=== PATIENT | female | born 1950 | race Caucasian/White ===

== ENCOUNTER 2016-09-13 10:09 | Outpatient (CLI) | payer MEDICARE, OTHER | END 2016-09-13 10:10 | disposition home or self-care (01) | DX: E78.70 Disorder of bile acid and cholesterol metabolism, unspecified (principal) ==

== ENCOUNTER 2016-10-31 12:29 | Emergency (ER) | payer MEDICARE, OTHER | END 2016-10-31 15:23 | disposition home or self-care (01) | DX: R07.9 Chest pain, unspecified (principal) ==

== ENCOUNTER 2016-12-14 22:49 | Outpatient (CLI) | payer MEDICARE, OTHER | END 2016-12-14 22:50 | disposition critical access hospital (66) | DX: R41.82 Altered mental status, unspecified (principal) | CPT/HCPCS: A0425; A0429 ==

== ENCOUNTER 2016-12-14 23:11 | Emergency (ER) | payer MEDICARE, OTHER ==
[2016-12-15] MEDS ORDERED: SODIUM CHLORIDE 0.9% 500 ML IV STA (01:32)
[2016-12-15] MEDS ORDERED: SODIUM CHLORIDE 0.9% 1,000 ML IV STA (01:33)
== END 2016-12-15 04:00 | disposition home or self-care (01) ==
DX: F10.129 Alcohol abuse with intoxication, unspecified (principal); W01.0XXA Fall on same level from slipping, tripping and stumbling without subsequent striking against object, initial encounter; Y92.018 Other place in single-family (private) house as the place of occurrence of the external cause
CPT/HCPCS: 36415; 70450; 80053; 80306; 81003; 83690; 85025; 99284; G0480

== ENCOUNTER 2017-01-08 10:02 | Outpatient (CLI) | payer MEDICARE, OTHER | END 2017-01-08 10:03 | disposition home or self-care (01) | DX: D47.2 Monoclonal gammopathy (principal) ==

== ENCOUNTER 2017-01-12 10:41 | Outpatient (CLI) | payer MEDICARE, OTHER | END 2017-01-12 10:42 | disposition home or self-care (01) | DX: Z12.31 Encounter for screening mammogram for malignant neoplasm of breast (principal) ==

== ENCOUNTER 2017-07-17 09:52 | Outpatient (CLI) | payer MEDICARE, OTHER ==
[2017-07-17 18:03] LABS: BASOPHILS % (AUTO) 0.4 %; EOSINOPHILS # (AUTO) 0.1 10^3/uL (0.0-0.7); EOSINOPHILS % (AUTO) 1.1 %; HCT - HEMATOCRIT 43.7 % (37.0-47.0); LYMPHOCYTES # (AUTO) 1.3 10^3/uL (1.5-3.5); LYMPHOCYTES % (AUTO) 26.4 %; MEAN CORPUSCULAR HEMOGLOBIN 29.9 pg (27.0-31.0); MEAN CORPUSCULAR HGB CONC 32.1 g/dL (32.0-36.0); MEAN CORPUSCULAR VOLUME 93.2 fL (81.0-99.0); MEAN PLATELET VOLUME 7.6 fL (7.9-10.8); MONOCYTES # (AUTO) 0.4 10^3/uL (0.0-1.0); MONOCYTES % (AUTO) 8.8 %; NEUTROPHILS # (AUTO) 3.1 10^3/uL (1.5-6.6); NEUTROPHILS % (AUTO) 63.3 %; RED BLOOD COUNT 4.69 10^6/uL (4.20-5.40); RED CELL DISTRIBUTION WIDTH 14.2 % (12.0-15.0); UNCORRECTED WHITE BLOOD COUNT 4.8 x10^3/uL; WHITE BLOOD COUNT 4.8 x10^3/uL (4.8-10.8)
[2017-07-17 18:51] LABS: ALBUMIN/GLOBULIN RATIO 1.2 (1.0-2.2); BILIRUBIN,TOTAL 0.6 mg/dL (0.2-1.0); BUN - BLOOD UREA NITROGEN 18 mg/dL (6-20); CARBON DIOXIDE - CO2 26 mmol/L (21-32); CHLORIDE 103 mmol/L (101-111); CHOL/HDL RATIO 2.5 (<4.4); CHOLESTEROL 178 mg/dL; CREATININE 0.8 mg/dL (0.4-1.0); GFR - MDRD 71 (>89); GLUCOSE 86 mg/dL (70-100); HDL CHOLESTEROL 71 mg/dL; LDL/HDL RATIO 1.4 (<4.4); POTASSIUM 3.9 mmol/L (3.5-5.0); SODIUM 136 mmol/L (135-145); TOTAL PROTEIN 7.8 g/dL (6.7-8.2); TRIGLYCERIDES 47 mg/dL; VLDL CHOLESTEROL 9 mg/dL
[2017-07-19 16:22] LABS: TEST RESULT REPORT
[2017-07-19 16:23] LABS: TEST RESULT REPORT
[2017-07-19 22:17] LABS: ALPHA 1 GLOBULIN 0.3 g/dL (0.2-0.3); ALPHA 2 GLOBULIN 0.7 g/dL (0.5-0.9); BETA 1 GLOBULIN 0.5 g/dL (0.4-0.6); BETA 2 GLOBULIN 0.3 g/dL (0.2-0.5); GAMMA GLOBULIN 1.5 g/dL (0.8-1.7)
[2017-07-19 22:51] LABS: TEST RESULT REPORT
[2017-07-21 16:31] LABS: TEST RESULT REPORT (())
[2017-07-23 13:11] LABS: ALBUMIN URINE 55 %; BETA GLOBULINS URINE 45 %; GAMMA GLOBULINS URINE 0 %; TOTAL VOLUME UR PEP NTV mL
== END 2017-07-17 09:53 | disposition home or self-care (01) ==
LOC: LAB.F 09:52
PROVIDERS: ATTEND Physician Assistant
DX: Z00.00 Encounter for general adult medical examination without abnormal findings (principal); E78.70 Disorder of bile acid and cholesterol metabolism, unspecified; R53.83 Other fatigue
CPT/HCPCS: 36415; 80053; 80061; 81599; 82570; 82784; 83883; 84155; 84156; 84165; 84166; 84443; 85025; 86335

== ENCOUNTER 2017-07-27 09:34 | Outpatient (CLI) | payer MEDICARE, OTHER ==
[2017-07-29 13:01] LABS: TEST RESULT REPORT
== END 2017-07-27 09:35 | disposition home or self-care (01) ==
LOC: LAB 09:34
PROVIDERS: ATTEND Family Medicine
DX: Z20.2 Contact with and (suspected) exposure to infections with a predominantly sexual mode of transmission (principal)
CPT/HCPCS: 36415; 80053; 80061; 81599; 84443; 85025; 86695; 86696